=== PATIENT | female | born 1940 | race Caucasian/White ===

== ENCOUNTER 2020-11-03 11:55 | Outpatient (CLI) | payer MEDICARE, SELFPAY ==
--- NOTE | ~2020-11-03 | XR_ITS ---
EXAMINATION: XR hand BI arthritis min 3V EXAM DATE: 11/03/2020 12:27 INDICATION: M19.90 - Unspecified osteoarthritis, unspecified site. TECHNIQUE: Right hand frontal, lateral and oblique projections obtained and reviewed. Left hand fron paul, lateral and oblique projections obtained and reviewed. Catchers projection of both hands. There is no prior study for comparison. FINDINGS: Right hand: There is polyarticular primary osteoarthritis as follows: Severe at the 1st carpometacarp al joint, moderate 1st interphalangeal, 2nd and 3rd distal interphalangeal joints, moderate at the ra diocarpal joint and triscaphe joint. Otherwise mild polyarticular primary osteoarthritis. There is ul triston minus variance. 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 There are no acute fractures identified. Ther e are no bony erosions identified. Left hand: There is polyarticular primary osteoarthritis as follows: Severe at the 1st carpometacarpa l joint, mild to moderate at 3rd interphalangeal joints and MCP joint, and the 2nd distal interphalan geal joint. Otherwise mild scattered polyarticular primary osteoarthritis. There is ulnar minus varia nce. There are no acute fractures identified. There are no bony erosions identified. IMPRESSION: 1. 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 2. Significant bilateral ulnar minus variance. 3. Right scapholunate dissociation. Reviewed, dictated and finalized at location B.
[2020-11-03 12:21] LABS: Basophils Absolute Auto 0.1 K/mm3 (0.0-0.1); Eosinophils Absolute Auto 0.1 K/mm3 (0-0.3); Eosinophils Percent Auto 2.7 % (0-4.4); Hematocrit 43.1 % (37.0-47.0); Hemoglobin 13.9 g/dL (12.0-15.0); Immature Granulocyte Absolute 0.01 K/mm3 (0.00-0.031); Immature Granulocyte Percent A 0.2 % (0-0.5); Lymphocytes Absolute Auto 1.78 K/mm3 (0.9-3.2); Lymphocytes Percent Auto 34.8 % (18.3-44.2); Mean Corpuscular HGB Conc 32.3 g/dl (32-36); Mean Corpuscular Hemoglobin 29.9 pg (26-34); Mean Corpuscular Volume 92.7 fl (80-100); Mean Platelet Volume 10.4 fl (7.4-10.4); Monocytes Absolute Auto 0.6 K/mm3 (0.1-0.6); Monocytes Percent Auto 10.7 % (2.6-8.5); Neutrophils Absolute Auto 2.6 K/mm3 (1.3-6.7); Neutrophils Percent Auto 50.6 % (45.5-73.1); Platelet Count Result 205 k/mm3 (150-375); Red Blood Count 4.65 M/mm3 (4.2-5.4); White Blood Count 5.1 K/mm3 (4.5-10.0)
[2020-11-03 12:35] LABS: Alanine Aminotransferase 27 U/L (4-35); Albumin Level 4.5 g/dL (3.5-5.1); Alkaline Phosphatase 55 U/L (38-126); Anion Gap 11 mmol/L (8-16); Aspartate Amino Transferase 34 U/L (14-36); Bilirubin,Total 0.4 mg/dL (0.2-1.3); Blood Urea Nitrogen 24 mg/dL (7-17); CRP 0.7 mg/dL (<1.0); Calcium 9.9 mg/dL (8.4-10.2); Carbon Dioxide 24 mmol/L (22-30); Chloride 107 mmol/L (98-107); Estimated Glomerular Filt Rate 43; Glucose 115 mg/dL (65-105); Lactate Dehydrogenase 356 U/L (313-618); Potassium 4.4 mmol/L (3.4-5.0); Sodium 142 mmol/L (137-145)
[2020-11-03 12:37] LABS: Complement C3 115 mg/dL (88-165)
[2020-11-03 12:51] LABS: Erythrocyte Sedimentation Rate 10 mm/hr (0-20)
[2020-11-06 01:28] LABS: Thyroid Peroxidase Antibodies <1 IU/mL (<9)
[2020-11-08 04:57] LABS: Aldolase 5.2 U/L (<=8.1)
[2020-11-09 06:35] LABS: SM Antibody <1.0; SM/RNP Antibody <1.0; SS-A <1.0; SS-B <1.0
[2020-11-09 10:04] LABS: Anti Cyclic Citrullinated Pept <16 Units (<20)
== END 2020-11-03 11:56 | disposition home or self-care (01) ==
PROVIDERS: PCP Family Medicine; Visit Provider Internal Medicine
DX: R76.8 Other specified abnormal immunological findings in serum (principal); M79.10 Myalgia, unspecified site; M19.90 Unspecified osteoarthritis, unspecified site; Z51.81 Encounter for therapeutic drug level monitoring; Z79.899 Other long term (current) drug therapy; M19.042 Primary osteoarthritis, left hand; M19.041 Primary osteoarthritis, right hand; M18.0 Bilateral primary osteoarthritis of first carpometacarpal joints
CPT/HCPCS: 36415; 73130; 80053; 82085; 82306; 83615; 84443; 85025; 85652; 86140; 86160; 86200; 86225; 86235; 86376

== ENCOUNTER 2021-02-13 11:30 | Outpatient (CLI) | payer MEDICARE, SELFPAY ==
--- NOTE | ~2021-02-13 | XR_ITS ---
XR humerus LT DATE: 02/13/2021 12:13 INDICATION: Myalgia. Mid humeral pain. No known injury. TECHNIQUE: AP and lateral views COMPARISON: None FINDINGS: There is mild to moderate osteoarthritis at the left glenohumeral joint. No fracture or dislocation, periosteal reaction or bone destruction of the left humerus. 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
[2021-02-13 14:03] LABS: Iron 84 ug/dL (37-170)
[2021-02-13 14:12] LABS: Percent Iron Saturation 23 % (20-50)
== END 2021-02-13 11:31 | disposition home or self-care (01) ==
LOC: ANHIMG 11:51
PROVIDERS: PCP Family Medicine; Visit Provider Internal Medicine
DX: M19.012 Primary osteoarthritis, left shoulder (principal); R53.83 Other fatigue; R76.8 Other specified abnormal immunological findings in serum; D50.9 Iron deficiency anemia, unspecified; M79.10 Myalgia, unspecified site; M67.912 Unspecified disorder of synovium and tendon, left shoulder
CPT/HCPCS: 36415; 73060; 82728; 83540; 83550

== ENCOUNTER 2024-03-16 08:48 | Outpatient (CLI) | payer MEDICARE, SELFPAY ==
[2024-04-06 15:27] VITALS: BMI 28.2
--- NOTE | 2024-04-06 15:27 | WPDSLEEPSTUD ---
Sleep Study Date of Study: 03/16/24 Ordering Provider: Jamel Atwood MD Interpreting Physician: Shauna Andrews DO Sleep Study Type: Polysomnogram Height: 1.68 m Weight: 79.379 kg Body Mass Index: 28.2 Neck Circumference (inches): 15 [place]: 0 Reason for Sleep Study Daytime hypersomnia Sleep History The patient is an 83-year-old female that had a sleep study ordered by her ENT physician for evaluation of sleep apnea. The patient denies awakening from sleep short of breath. She rarely awakens at night with heartburn, belching or cough. He rarely has trouble sleeping when she has a cold. She denies waking up gasping for air throughout the night. She denies having breathing problems at night observed by herself or others. She rarely sweats excessively at night. She denies having heart palpitations or irregular heartbeats during the night. She occasionally falls asleep during the day but never while driving. She denies sleep paralysis, cataplexy and hypnagogic / hypnopompic hallucinations. She denies feeling afraid of going to sleep. She denies having nightmares. She occasionally remembers her dreams. She denies having thoughts racing through her mind. She occasionally feels sad, depressed and anxious. She occasionally has muscular tension. She denies noticing parts of her body jerk. She frequently has leg pain during the night. She denies grinding her teeth during sleep and denies awakening with morning jaw pain. She is frequently bothered by pain during the day and frequently awakened by pain during the night. She frequently wakes up feeling stiff in the morning. She occasionally wakes up with sore or achy muscles. She occasionally wakes up with pain in the neck, spine or other joints. The patient stays in bed for 30 minutes after waking up in the morning. She denies consuming any caffeinated beverages within 2 hours of bedtime. She denies engaging in physical exercise before bedtime. She will occasionally read before falling asleep. She denies watching television before falling asleep. She will occasionally take naps in the afternoon or the evening. 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 Social History Social History Smoking status: Never smoker Second hand tobacco smoke exposure: No Alcohol intake: never Substance use: never Substance use type: does not use Living arrangements: with family Occupation/Education: retired Gender identity (if verbalized by the patient): Female Medications Home Medications Medication Instructions Recorded Confirmed Type amlodipine 5 mg tablet 5 mg PO DAILY 05/04/20 11/03/20 History aspirin 81 mg tablet,delayed 81 mg PO DAILY 05/04/20 11/03/20 History release atenolol 50 mg tablet 50 mg PO DAILY 05/04/20 11/03/20 History cetirizine 10 mg capsule (Zyrtec) mg PO DAILY 05/04/20 11/03/20 History dulaglutide 1.5 mg/0.5 mL 1.5 mg subcut WEEKLY 05/04/20 11/03/20 History subcutaneous pen injector (Trulicity) fenofibrate micronized 134 mg 134 mg PO DAILY 05/04/20 11/03/20 History capsule pantoprazole 40 mg tablet,delayed 40 mg PO QAM 05/04/20 11/03/20 History release tramadol 50 mg tablet 50 mg PO DAILY PRN 05/04/20 11/03/20 History prednisone 2.5 mg tablet 2.5 mg PO DAILY #40 tabs 11/03/20 11/03/20 Rx clopidogrel 75 mg tablet (Plavix) 75 mg PO DAILY 02/13/21 History methocarbamol 750 mg tablet 750 mg PO TID #90 tabs 02/13/21 02/13/21 Rx metoprolol tartrate 50 mg tablet 50 mg PO DAILY 02/13/21 History gabapentin 600 mg tablet 600 mg PO TID #90 tabs 06/11/21 Rx Sleep Procedure A full night polysomnogram using the [employer] multi-channel system recorded the standard physiologic parameters including EEG, EOG, submentalis EMG, anterior tibialis EMG, EKG, body position, nasal and oral airflow using nasal pressure sensor and thermistor.? Respiratory parameters of chest and abdominal movements were recorded with Respiratory Inductance Plethysmography belts. Oxygen saturation was recorded by pulse oximetry. Video monitoring was also performed. Sleep stages, periodic limb movements, and EEG arousals were scored in 30 second epochs according to the criteria of the AASM Scoring Manual. The Apnea-Hypopnea Index was calculated using [facility] guidelines for definition of hypopnea with 4% O2 desaturations while scoring respiratory events. Sleep Architecture The total recording time was 447.1 minutes.? The total sleep time was 310.5 minutes. Sleep latency was 7.9 minutes. REM latency was 103.0 minutes. Sleep efficiency was 69.4%. The patient had 43 awakenings for an awakening index of 8.3. Wake after sleep onset time was 129.0 minutes. The patient spent 53.0 minutes, 17.1% of total sleep time in Stage N1. The patient spent 195.0 minutes, 62.8% in Stage N2. The patient spent 29.5 minutes, 9.5% in Stage N3. The patient spent 33.0 minutes, 10.6% in Stage REM sleep. Respiratory Analysis The patient had 79 hypopneas, 6 obstructive apneas, 3 mixed apneas, and 4 central apneas for an overall Apnea Hypopnea Index of 17.8. The REM Apnea Hypopnea Index was 47.3. The NREM Apnea Hypopnea Index was 14.3. The patient had a Central Apnea Hypopnea Index of 0.8. There were 82 Respiratory Effort Related Arousals resulting in a RERA index of 15.8 events per hour. The Respiratory Disturbance Index is 33.6 events per hour. There was no evidence of Sky-Garcia Respirations. Arousals There were 263 total arousals for an arousal index of 50.8. There were 103 spontaneous arousals for an index of 19.9. There were 102 arousals due to respiratory events for an index of 19.7. There were 31 arousals due to periodic limb movements for an index of 6.0.? There were 28 arousals due to isolated limb movements for an index of 5.4. Periodic Limb Movements The patient had 31 isolated limb movements with an index of 6.0. The patient had 54 periodic limb movements with an index of 10.4. Patient had a total of 85 limb movements with a total limb movement index of 16.4. Oximetry Data The patient had an average oxygen saturation of 91.1% in sleep with a minimum oxygen saturation of 85.0% and a maximum oxygen saturation of 96.0%. The patient had 90 oxygen desaturations that were 4% or greater resulting in an Oxygen Desaturation Index of 17.4.? The patient spent 13.3 minutes, 3.1% of total sleep time with an oxygen saturation below 88%. Snoring Profile Mild snoring was present intermittently throughout the study. Cardiac Profile The EKG showed normal sinus rhythm with rare PVCs. The patient had an average pulse rate of 67.3 bpm with a minimum pulse of rate of 54.0 bpm and a maximum pulse rate of 92.0 bpm.? EEG Profile No signs of seizure activity seen. Assessment and Plan Assessment and Plan (1) NASREEN (obstructive sleep apnea): Code(s): G47.33 - Obstructive sleep apnea (adult) (pediatric) Status: Acute Assessment and Plan: The patient had an overall AHI of 17.8 with desaturation down to 85%. This is consistent with moderate sleep apnea. I recommend that the patient have a PAP Titration study with the use of a hypnotic to ensure we obtain enough sleep data and find an optimal pressure. Data The data obtained during this sleep study is adequate for interpretation. Certification This sleep study has been reviewed by a board certified sleep medicine physician.
== END 2024-03-17 06:54 | disposition home or self-care (01) ==
PROVIDERS: Visit Provider Otolaryngology
DX: G47.33 Obstructive sleep apnea (adult) (pediatric) (principal)
CPT/HCPCS: 95810